=== PATIENT | female | born 1980 | race African-American/Black ===

== ENCOUNTER 2016-09-28 21:12 | Emergency (ER) | payer MEDICAID ==
[~2016-09-28] VITALS: Ht 157.5 cm; Wt 70.3 kg
[2016-09-28] MEDS ORDERED: NKM (21:23)
--- NOTE | 2016-09-28 21:35 | Emergency Room Report ---
History of Present Illness General Chief Complaint: Pain Source: Patient Present Illness HPI Is a 36-year-old female with no significant past medical history. She presents with chief complaint of multiple left-sided pain status post fall. Onset was around 4:45 PM this afternoon. She was crossing the street and turned jump over a small ledge. She tripped on it and fell on her left side. She complaining of pain mostly on her left shoulder, neck, left forearm, left side, and left leg. No loss of consciousness. Still able to work. No fever or chills. Pain is worse with movement. Also with pain going down from her neck or arm. Denies any other complaint. Pain is 9/10. Allergies: Coded Allergies: No Known Allergies (Unverified , 09/28/16) Patient History Past Medical History: see triage record, old chart reviewed Past Surgical History: none Pertinent Family History: none Social History: Denies: smoking Last Menstrual Period: 07/30/16 Now: No : 4 Para: 0 Immunizations: other Reviewed Nursing Documentation: PMH: Agreed, PSxH: Agreed Nursing Documentation-PMH Past Medical History: No Stated History Review of Systems Eye: Denies: blurred vision, eye pain ENT: Denies: ear pain, nose congestion, throat swelling Respiratory: Denies: cough, shortness of breath Cardiovascular: Denies: chest pain, palpitations Gastrointestinal: Denies: abdominal pain, diarrhea, nausea, vomiting Musculoskeletal: Reports: joint pain, muscle pain, muscle stiffness, Denies: back pain Skin: Denies: rash Neurological: Denies: headache, numbness Endocrine: Denies: increased thirst, increased urine Hematologic/Lymphatic: Denies: easy bruising All Other Systems: negative except mentioned in HPI Physical Exam Vital Signs Date Time Temp Pulse Resp B/P Pulse Ox O2 Delivery O2 Flow Rate FiO2 09/28/16 21:19 98.4 85 16 143/101 99 Room Air vitals with hypertension Sp02 EP Interpretation: reviewed, normal General Appearance: well appearing, no apparent distress, alert Head: normocephalic, atraumatic Eyes: bilateral eye EOMI, bilateral eye PERRL ENT: hearing grossly normal, normal pharynx Neck: full range of motion, supple, no meningismus, tender - Tenderness along the Left paraspinous muscle. Respiratory: chest non-tender, lungs clear, normal breath sounds Cardiovascular #1: regular rate, rhythm, no murmur Gastrointestinal: normal bowel sounds, non tender, no mass, no organomegaly, no bruit, non-distended Musculoskeletal: back normal, gait/station normal, normal range of motion, other - Left shoulder: Diffuse tenderness. Full range of motion. Sensation normal. Psychiatric: mood/affect normal Skin: warm/dry Medical Decision Making Diagnostic Impression: Primary Impression: Cervical strain, acute Qualified Codes: S16.1XXA - Strain of muscle, fascia and tendon at neck level , initial encounter Additional Impressions: Contusion of left shoulder, initial encounter Contusion of left thigh, initial encounter Contusion of left lower leg, initial encounter ER Course Patient with soft tissue injury. No fracture or dislocation. We'll discharge home with reassurance. Other X-Ray Diagnostic Results Other X-Ray Diagnostic Results : X-Ray ordered: C-spine x-rays # of Views/Limited Vs Complete: 3 View EP Interpretation: Yes Interpretation: no fractures, no dislocation, no soft tissue swelling Indication: Pain Impression: No acute disease Interpreting ER Provider: Electronically signed by Cody Hill MD Last Vital Signs Date Time Temp Pulse Resp B/P Pulse Ox O2 Delivery O2 Flow Rate FiO2 09/28/16 21:19 98.4 85 16 143/101 99 Room Air Status: improved Disposition: HOME, SELF-CARE Condition: Stable Scripts Ibuprofen* (MOTRIN*) 600 Mg Tablet 600 MG ORAL THREE TIMES A DAY, #30 TAB 0 Refills Prov: CODY HILL M.D. 09/28/16 Hydrocodone/Acetaminophen 5-325* (HYDROCODONE/ACETAMINOPHEN 5-325*) 1 Each Tablet 1 TAB ORAL Q6H Y for For Pain, #20 TAB 0 Refills Prov: CODY HILL M.D. 09/28/16 Additional Instructions: Followup with your DrBryant in 2-5 days. Return if symptom worsen. Ice pack to the area. CODY HILL M.D. Sep 28, 2016 21:35
[2016-09-28] MEDS ORDERED: IBUPROFEN600 MG ORAL (21:40)
[2016-09-28] MEDS ORDERED: HYDROCODON-ACE1 EA15 ORAL (21:40)
[2016-09-28] MEDS ORDERED: Norco 5mg/325mg tab ORAL ONE (21:45)
[2016-09-28 22:00] VITALS: BP 139/88
[2016-09-28 22:30] VITALS: BP 139/88
--- NOTE | 2016-09-29 11:35 | Diagnostic Imaging Report ---
Indication: Pain Comparison: None Findings: Two views of the left tibia and fibula were obtained. No acute fracture, malalignment, or periosteal reaction are identified. Soft tissues are unremarkable. Impression: Negative examination of the tibia and fibula
--- NOTE | 2016-09-29 11:35 | Diagnostic Imaging Report ---
Indication: Neck Pain Findings: 3 views of the cervical spine were obtained. There is narrowing of the C3-4 disc with marginal spur formation. There is no malalignment or fracture identified. Open-mouth view is negative. No soft tissue swelling is present. Impression: Degenerative disease at C3-4
--- NOTE | 2016-09-29 11:35 | Diagnostic Imaging Report ---
Indication: Pain Findings: 3 views of the left shoulder were obtained. Alignment of the left shoulder is normal. No acute fracture is identified. Soft tissues are unremarkable. Impression: Negative left shoulder examination
== END 2016-09-28 22:30 | disposition home or self-care (01) ==
LOC: EMR 21:42
DX: S16.1XXA Strain of muscle, fascia and tendon at neck level, initial encounter (principal); S40.012A Contusion of left shoulder, initial encounter; S70.12XA Contusion of left thigh, initial encounter; S80.12XA Contusion of left lower leg, initial encounter; W01.0XXA Fall on same level from slipping, tripping and stumbling without subsequent striking against object, initial encounter; Y92.410 Unspecified street and highway as the place of occurrence of the external cause
CPT/HCPCS: 72040; 99284

== ENCOUNTER 2017-01-05 20:53 | Emergency (ER) | payer MEDICAID ==
[~2017-01-05] VITALS: Ht 157.5 cm; Wt 68.0 kg
[~2017-01-05 20:53] MED LIST: HYDROCODON-ACE1 EA15 ORAL; IBUPROFEN600 MG ORAL; NKM
[2017-01-05 21:00] VITALS: BP 127/86
--- NOTE | 2017-01-05 21:18 | Emergency Room Report ---
History of Present Illness General Chief Complaint: Abdominal Pain Source: Patient Present Illness HPI 36-year-old female , (one miscarriage and 2 ectopic pregnancies), presents with abdominal pain and missed menstrual period. Patient states that she normally gets her period every month on the first, has been late for 6 days. Patient states she took a test which was positive. Also complaining of generalized abdominal pain left worse than right , 4/10, constant, crampy. Denies any fever chills, nausea vomiting, vaginal bleeding, vaginal discharge. No dysuria or hematuria. Patient states that she has had 2 ectopic pregnancies, both requiring surgical repair, states that her right tube was removed, and her left tube was tied Allergies: Coded Allergies: No Known Allergies (Unverified , 09/28/16) Patient History Past Medical History: see triage record Past Surgical History: none Pertinent Family History: none Last Menstrual Period: Nov Reviewed Nursing Documentation: PMH: Agreed, PSxH: Agreed Review of Systems All Other Systems: negative except mentioned in HPI Physical Exam Vital Signs Date Time Temp Pulse Resp B/P (MAP) Pulse Ox O2 Delivery O2 Flow Rate FiO2 01/05/17 20:56 98.6 76 18 127/86 98 Room Air Sp02 EP Interpretation: reviewed, normal General Appearance: normal inspection, well appearing, no apparent distress, alert, GCS 15, non-toxic, other - Well appearing female, nontoxic, not in pain, calm and cooperative Head: normocephalic, atraumatic Eyes: bilateral eye normal inspection, bilateral eye PERRL, bilateral eye EOMI ENT: normal ENT inspection, normal pharynx, normal voice, moist mucus membranes Neck: normal inspection, full range of motion, supple Respiratory: normal inspection, lungs clear, normal breath sounds, no respiratory distress, no retraction, no wheezing, speaking full sentences, chest symmetrical Cardiovascular #1: normal inspection, regular rate, rhythm, no edema, normal capillary refill Cardiovascular #2: 2+ radial (R), 2+ radial (L) Gastrointestinal: normal inspection, non tender, soft, non-distended, no guarding, other - Nontender all quadrants Genitourinary: no CVA tenderness Musculoskeletal: normal inspection, back normal, normal range of motion, non- tender Neurologic: normal inspection, alert, oriented x3, responsive, motor strength/ tone normal, sensory intact, normal gait, speech normal Psychiatric: normal inspection, judgement/insight normal, memory normal Skin: normal inspection, normal color, no rash, warm/dry, well hydrated, normal turgor Medical Decision Making Diagnostic Impression: Primary Impression: Abdominal pain Additional Impression: Positive blood test ER Course 28-year-old female, with missed menstrual cycle, and abdominal pain DDX: , ectopic, menstrual cycle pain Other intra-abdominal pathology such as appendicitis unlikely, abdomen is very soft and nontender time Plan: cbc, bmp, bhcg, type and screen, ua, ucx Pt remains stable/nontoxic appearing in ED. ER course patient has remained stable in ED no pain no vaginal bleeding US no IUP beta slightly elevated at 972 Disposition: Patient will be discharged to home. Patient was informed that at this time, ectopic is not excluded. Patient still may have ectopic versus normal Strict return precautions to discussed with patient such as high fever, chills, abdominal pain, intractable nausea or vomiting, worsening/heavy bleeding, lightheadedness or syncope. Patient verbalized understanding. Patient instructed to follow up with her OBGYN within 48 hours without fail for repeat bhcg and sonogram. Patient agrees with plan. Please note that this Emergency Department Report was dictated using [employer] coil assembler technology software, occasionally this can lead to erroneous entry secondary to interpretation by the dictation equipment. CT/MRI/US Diagnostic Results CT/MRI/US Diagnostic Results : Imaging Test Ordered: US pelvic transvaginal sono Impression no IUP, thickened endometrium, no free fluid Electronically signed by Shanique Real MD Last Vital Signs Date Time Temp Pulse Resp B/P (MAP) Pulse Ox O2 Delivery O2 Flow Rate FiO2 01/05/17 20:56 98.6 76 18 127/86 98 Room Air Disposition: HOME, SELF-CARE Condition: Improved Shanique Real M.D. Jan 05, 2017 21:18
[2017-01-05 21:39] LABS: APPEARANCE,URINE CLEAR; KETONES,URINE 4+ (NEGATIVE); LEUKOCYTE ESTERASE ,URINE 1+ (NEGATIVE); NITRITE,URINE NEGATIVE (NEGATIVE); PH,URINE 5 (4.5-8.0); PROTEIN,URINE NEGATIVE (NEGATIVE); UROBILINOGEN,URINE NORMAL MG/DL (0.0-1.0)
[2017-01-05 21:41] LABS: BASOPHILS % (AUTO) 1.4 % (0.0-2.0); EOSINOPHILS % (AUTO) 0.7 % (0.0-3.0); LYMPHOCYTES % (AUTO) 30.9 % (20.0-45.0); MEAN CORPUSCULAR HEMOGLOBIN 29.1 PG (27.0-31.0); MEAN CORPUSCULAR HGB CONC 31.7 G/DL (32.0-36.0); MEAN CORPUSCULAR VOLUME 92 FL (80-99); MEAN PLATELET VOLUME 5.7 FL (6.5-10.1); MONOCYTES % (AUTO) 6.3 % (1.0-10.0); NEUTROPHILS % (AUTO) 60.7 % (45.0-75.0); PLATELET COUNT 274 K/UL (150-450); RED BLOOD COUNT 4.46 M/UL (4.20-5.40); RED CELL DISTRIBUTION WIDTH 11.2 % (11.6-14.8); WHITE BLOOD COUNT 6.1 K/UL (4.8-10.8)
[2017-01-05 21:48] LABS: BACTERIA,URINE FEW /HPF; MUCUS,URINE FEW /LPF (NONE/OCC); RBC,URINE 0-2 /HPF (0 - 2); SQUAMOUS EPITHELIAL CELL,UR FEW /LPF (NONE/OCC); WBC,URINE 0-2 /HPF (0 - 2)
[2017-01-05 21:59] LABS: ALANINE AMINOTRANSFERASE 12 U/L (3-33); ALBUMIN/GLOBULIN RATIO 0.8 (1.0-2.7); ANION GAP 16 (5-15); ASPARTATE AMINO TRANSFERASE 18 U/L (5-40); CALCIUM 9.3 mg/dL (8.6-10.2); CARBON DIOXIDE 23 mEQ/L (20-30); CHLORIDE 99 mEQ/L (98-107); CREATININE 0.7 mg/dL (0.5-0.9); GLOMERULAR FILTRATION RATE > 60 mL/min (>60); HEMOLYSIS 1; LIPASE 29 U/L (< 60); POTASSIUM 3.6 mEQ/L (3.4-4.9); SODIUM 138 mEQ/L (135-145); TOTAL PROTEIN 9.7 g/dL (6.6-8.7)
[2017-01-05 23:54] VITALS: BP_SYST 105; BP_SYST 85; BP_DIAS 85
[2017-01-05 23:58] VITALS: BP 105/85
--- NOTE | 2017-01-06 09:04 | Diagnostic Imaging Report ---
Indication: Pelvic pain with positive test. Technique: Transabdominal and endovaginal pelvic ultrasound. Comparison: None Findings: Uterus measures 7.3 x 4.2 cm. The endometrial echo complex measures 1.3 cm. No intrauterine is identified. Left ovary measures 3.2 x 2.0 cm with follicular changes. Right ovary measures 3.2 x 2.3 cm with a 2.2 cm hypoechoic lesion. There is no free pelvic fluid. Impression: No intrauterine identified. Differential considerations include a spontaneous , early intrauterine below threshold level for sonographic visualization or non state. In the absence of a documented intrauterine , ectopic cannot be excluded. Clinical/laboratory correlation recommended. Followup imaging can be performed as clinically appropriate. Approximately 2.2 cm hypoechoic probable hemorrhagic or corpus lesion cyst of the right ovary. Short-term followup recommended for further evaluation.
[2017-01-06] MEDS ORDERED: NORCO 5-325 TA1 EACH ORAL (12:43)
== END 2017-01-05 23:58 | disposition home or self-care (01) ==
LOC: EMR 21:10
DX: R10.9 Unspecified abdominal pain (principal); Z32.01 Encounter for pregnancy test, result positive
CPT/HCPCS: 36415; 76830; 76856; 80053; 81003; 81025; 83690; 84702; 85025; 86850; 86900; 86901; 99284

== ENCOUNTER 2017-01-06 09:52 | Emergency (ER) | payer MEDICAID ==
[~2017-01-06] VITALS: Ht 157.5 cm; Wt 68.0 kg
[2017-01-06 11:02] LABS: BASOPHILS % (AUTO) 1.6 % (0.0-2.0); LYMPHOCYTES % (AUTO) 31.8 % (20.0-45.0); MEAN CORPUSCULAR HEMOGLOBIN 29.7 PG (27.0-31.0); MEAN CORPUSCULAR HGB CONC 32.8 G/DL (32.0-36.0); MEAN CORPUSCULAR VOLUME 91 FL (80-99); MEAN PLATELET VOLUME 6.3 FL (6.5-10.1); MONOCYTES % (AUTO) 10.9 % (1.0-10.0); NEUTROPHILS % (AUTO) 54.6 % (45.0-75.0); PLATELET COUNT 288 K/UL (150-450); RED CELL DISTRIBUTION WIDTH 11.3 % (11.6-14.8); WHITE BLOOD COUNT 4.3 K/UL (4.8-10.8)
[2017-01-06 11:05] LABS: ALANINE AMINOTRANSFERASE 10 U/L (3-33); ALBUMIN/GLOBULIN RATIO 1.2 (1.0-2.7); ANION GAP 13 (5-15); ASPARTATE AMINO TRANSFERASE 18 U/L (5-40); CARBON DIOXIDE 23 mEQ/L (20-30); CHLORIDE 101 mEQ/L (98-107); CREATININE 0.7 mg/dL (0.5-0.9); GLOMERULAR FILTRATION RATE > 60 mL/min (>60); HEMOLYSIS 3; POTASSIUM 4.2 mEQ/L (3.4-4.9); SODIUM 137 mEQ/L (135-145); TOTAL PROTEIN 7.1 g/dL (6.6-8.7)
[2017-01-06 11:21] LABS: CALCIUM 9.1 mg/dL (8.6-10.2)
[2017-01-06] MEDS ORDERED: NORCO 5-325 TA1 EACH ORAL (12:43)
--- NOTE | 2017-01-06 12:43 | Emergency Room Report ---
History of Present Illness General Chief Complaint: Complications Source: Patient Present Illness HPI Patient is a 36-year-old female who presented after increased lower abdominal pain. Patient had recently been seen for related pain. Patient prior history of ectopic . She reports having a previous surgery to her tubes. Patient not been vomiting. She reported having moderate pain. The pain is predominantly in the left side. Allergies: Coded Allergies: No Known Allergies (Unverified , 09/28/16) Patient History Past Medical History: see triage record Reviewed Nursing Documentation: PMH: Agreed, PSxH: Agreed Review of Systems All Other Systems: negative except mentioned in HPI Physical Exam Vital Signs Date Time Temp Pulse Resp B/P (MAP) Pulse Ox O2 Delivery O2 Flow Rate FiO2 01/06/17 09:54 98.2 80 20 142/93 99 Room Air Sp02 EP Interpretation: reviewed, normal General Appearance: normal inspection, well appearing, no apparent distress, alert, GCS 15 Head: atraumatic ENT: normal ENT inspection, hearing grossly normal, normal voice Neck: normal inspection, full range of motion, supple, no bony tend Respiratory: normal inspection, lungs clear, normal breath sounds, no respiratory distress, no retraction, no wheezing Cardiovascular #1: regular rate, rhythm, no edema Gastrointestinal: normal inspection, normal bowel sounds, non tender, soft, no guarding, no hernia Genitourinary: no CVA tenderness Musculoskeletal: normal inspection, back normal, normal range of motion Neurologic: normal inspection, alert, oriented x3, responsive, underground repairer III-XII nml as tested, speech normal Psychiatric: normal inspection, judgement/insight normal, mood/affect normal Skin: normal inspection, normal color, no rash Medical Decision Making Diagnostic Impression: Primary Impression: Early stage of ER Course Patient is a for abdominal pain. differential diagnosis included was not limited to early , incomplete , ectopic , a completed , threatened among others.Because of complexity of patient's case laboratory testing and imaging studies were ordered. The patient was noted to have a rising Quant when compared Previous which was less than 24 hours ago. The patient was noted to have no evidence of free fluid on bedside ultrasound. The patient was offered in-hospital observation and she declined . The patient is advised to return if she began having increased pain, dizziness or other concerns. She is advised that she would need repeat quantitative hCG in 2 days. Labs Test 01/06/17 10:32 White Blood Count 4.3 K/UL (4.8-10.8) Red Blood Count 4.70 M/UL (4.20-5.40) Hemoglobin 14.0 G/DL (12.0-16.0) Hematocrit 42.6 % (37.0-47.0) Mean Corpuscular Volume 91 FL (80-99) Mean Corpuscular Hemoglobin 29.7 PG (27.0-31.0) Mean Corpuscular Hemoglobin Concent 32.8 G/DL (32.0-36.0) Red Cell Distribution Width 11.3 % (11.6-14.8) Platelet Count 288 K/UL (150-450) Mean Platelet Volume 6.3 FL (6.5-10.1) Neutrophils (%) (Auto) 54.6 % (45.0-75.0) Lymphocytes (%) (Auto) 31.8 % (20.0-45.0) Monocytes (%) (Auto) 10.9 % (1.0-10.0) Eosinophils (%) (Auto) 1.0 % (0.0-3.0) Basophils (%) (Auto) 1.6 % (0.0-2.0) Sodium Level 137 mEQ/L (135-145) Potassium Level 4.2 mEQ/L (3.4-4.9) Chloride Level 101 mEQ/L (98-107) Carbon Dioxide Level 23 mEQ/L (20-30) Anion Gap 13 (5-15) Blood Urea Nitrogen 13 mg/dL (7-23) Creatinine 0.7 mg/dL (0.5-0.9) Estimat Glomerular Filtration Rate > 60 mL/min (>60) Glucose Level 100 mg/dL (74-106) Calcium Level 9.1 mg/dL (8.6-10.2) Total Bilirubin 0.4 mg/dL (0.0-1.2) Aspartate Amino Transf (AST/SGOT) 18 U/L (5-40) Alanine Aminotransferase (ALT/SGPT) 10 U/L (3-33) Alkaline Phosphatase 52 U/L (35-104) Total Protein 7.1 g/dL (6.6-8.7) Albumin 4.0 g/dL (3.5-5.2) Globulin 3.1 g/dL Albumin/Globulin Ratio 1.2 (1.0-2.7) Human Chorionic Gonadotropin, Quant 999 mIU/mL Last Vital Signs Date Time Temp Pulse Resp B/P (MAP) Pulse Ox O2 Delivery O2 Flow Rate FiO2 01/06/17 09:54 98.2 80 20 142/93 99 Room Air Status: improved Disposition: HOME, SELF-CARE Condition: Stable Scripts Hydrocodone Bit/Acetaminophen 5-325* (NORCO 5-325*) 1 Each Tablet 1 TAB ORAL Q6H Y for For Pain, #20 TAB 0 Refills Prov: Andres Blackburn 01/06/17 Patient Instructions: Abdominal Pain During Andres Blackburn Jan 06, 2017 12:43
[2017-01-06 12:46] VITALS: BP 137/87
== END 2017-01-06 12:49 | disposition home or self-care (01) ==
LOC: EMR 10:07
DX: O26.899 Other specified pregnancy related conditions, unspecified trimester (principal); R10.30 Lower abdominal pain, unspecified
CPT/HCPCS: 36415; 80053; 84702; 85025; 86900; 86901; 99283

== ENCOUNTER 2017-01-10 15:20 | Emergency (ER) | payer MEDICAID ==
[~2017-01-10] VITALS: Ht 157.5 cm; Wt 68.0 kg
[~2017-01-10 15:20] MED LIST changes: +NORCO 5-325 TA1 EACH ORAL
[2017-01-10 16:48] LABS: APPEARANCE,URINE CLEAR; KETONES,URINE 1+ (NEGATIVE); LEUKOCYTE ESTERASE ,URINE 1+ (NEGATIVE); NITRITE,URINE NEGATIVE (NEGATIVE); PH,URINE 6 (4.5-8.0); PROTEIN,URINE 1+ (NEGATIVE); UROBILINOGEN,URINE 1 MG/DL (0.0-1.0)
[2017-01-10 16:51] LABS: BASOPHILS % (AUTO) 2.7 % (0.0-2.0); LYMPHOCYTES % (AUTO) 37.4 % (20.0-45.0); MEAN CORPUSCULAR HEMOGLOBIN 28.8 PG (27.0-31.0); MEAN CORPUSCULAR HGB CONC 31.2 G/DL (32.0-36.0); MEAN CORPUSCULAR VOLUME 92 FL (80-99); MEAN PLATELET VOLUME 5.8 FL (6.5-10.1); MONOCYTES % (AUTO) 12.6 % (1.0-10.0); NEUTROPHILS % (AUTO) 46.3 % (45.0-75.0); PLATELET COUNT 274 K/UL (150-450); RED BLOOD COUNT 4.73 M/UL (4.20-5.40); RED CELL DISTRIBUTION WIDTH 11.2 % (11.6-14.8); WHITE BLOOD COUNT 4.2 K/UL (4.8-10.8)
[2017-01-10 16:55] LABS: BACTERIA,URINE FEW /HPF; SQUAMOUS EPITHELIAL CELL,UR FEW /LPF (NONE/OCC); WBC,URINE 0-2 /HPF (0 - 2)
--- NOTE | 2017-01-10 17:27 | Emergency Room Report ---
History of Present Illness General Chief Complaint: Complications Source: Patient Present Illness HPI 36 -year-old female presents to the emergency department complaining of left adnexal pain x2 days with spotting. Patient reports she is approximately 4 weeks she has not had IUP established she has a history of ectopic pregnancies bilaterally with excision of the right fallopian tube. Pt. rates pain currently at 2/10 in severity however reports that it was 7/10 in severity with radiation to the left leg prior to arrival and taking oral [place] PO. Patient denies nausea or vomiting, fevers or chills. Patient states that she has been evaluated here in the emergency department with low hCG level and on followup with her DEBUG TECHNICIAN was told that her level continues to drop. Allergies: Coded Allergies: No Known Allergies (Unverified , 09/28/16) Patient History Last Menstrual Period: 11/30/2016 : 4 Para: 0 Nursing Documentation-[facility] Past Medical History: No Stated History Review of Systems All Other Systems: negative except mentioned in HPI Physical Exam Vital Signs Date Time Temp Pulse Resp B/P (MAP) Pulse Ox O2 Delivery O2 Flow Rate FiO2 01/10/17 15:26 98.2 72 14 124/83 99 Room Air Sp02 EP Interpretation: reviewed, normal General Appearance: no apparent distress, alert, GCS 15, non-toxic Head: normocephalic, atraumatic Eyes: bilateral eye normal inspection, bilateral eye PERRL ENT: hearing grossly normal, normal voice Neck: full range of motion, supple/symm/no masses Respiratory: lungs clear, normal breath sounds, speaking full sentences Cardiovascular #1: regular rate, rhythm Gastrointestinal: normal bowel sounds, non tender, soft, no guarding, no rebound Rectal: deferred Genitourinary: normal inspection, no CVA tenderness, os closed, other - Left adnexal TTP, scant dark red blood in the vaginal vault, os is closed Musculoskeletal: back normal, gait/station normal, normal range of motion, non- tender Neurologic: alert, oriented x3, responsive, motor strength/tone normal, sensory intact, speech normal Skin: normal color, no rash, warm/dry, well hydrated Lymphatic: no adenopathy Medical Decision Making PA Attestation Dr. Jeffers is my supervising Physician whom patient management has been discussed with. Diagnostic Impression: Primary Impression: Adnexal mass Additional Impression: Adnexal pain ER Course 36 -year-old female presents to the emergency department complaining of left adnexal pain x2 days with spotting. Patient reports she is approximately 4 weeks she has not had IUP established she has a history of ectopic pregnancies bilaterally. Patient denies nausea or vomiting, fevers or chills. Patient states that she has been evaluated here in the emergency department with low hCG level and on followup with her DEBUG TECHNICIAN was told that her level continues to drop. Ddx considered but are not limited to: Fibroid, ectopic , Fibroid, Spontaneous , Vital signs: are WNL, pt. is afebrile H&PE are most consistent with: possible ectopic or miscarriage. - review of previous blood type taken 4 days ago is : A positive ORDERS: -CBC: no leukocytosis, no anemia -CMP: unremarkable -UA: no evidence of infection, blood noted , consistent with spotting. -Urine hcg- Positive -serum Hcg Quant: 51 ( previously was 999 on 01/06 ) -Pelvic US complete- mass in the left adnexal area suspicious for ectopic per Radiologist: Dr. Tian. ED INTERVENTIONS: -NPO - OBGYN CONSULT: Dr. Arnold : Dr. Olivia michael does not suspect ectopic at this time as he notes that the hCG has dropped significantly to 51 which is almost 0, he believes this is spontaneous miscarriage as no IUP or HR/ viability was previously established. to see her once a radiologist to compare both today and previous ultrasound taken 4 days ago. He states that as long as patient is hemodynamically stable, and has ability for outpatient followup tomorrow with her DEBUG TECHNICIAN he is comfortable with her being discharged and having repeat hCG in 24 hours. - [place] PO DISCHARGE: At this time pt. is stable for d/c to home with close outpatient follow up. Patient is to have DEBUG TECHNICIAN followup in 24 hours for repeat hCG. Gave patient strict emergency Department return precautions with worsening or new symptoms. Patient verbalizes her understanding and agreement with post treatment plan. . Will provide printed patient care instructions, and any necessary prescriptions. Care plan and follow up instructions have been discussed with the patient prior to discharge. Labs Test 01/10/17 16:28 White Blood Count 4.2 K/UL (4.8-10.8) Red Blood Count 4.73 M/UL (4.20-5.40) Hemoglobin 13.6 G/DL (12.0-16.0) Hematocrit 43.7 % (37.0-47.0) Mean Corpuscular Volume 92 FL (80-99) Mean Corpuscular Hemoglobin 28.8 PG (27.0-31.0) Mean Corpuscular Hemoglobin Concent 31.2 G/DL (32.0-36.0) Red Cell Distribution Width 11.2 % (11.6-14.8) Platelet Count 274 K/UL (150-450) Mean Platelet Volume 5.8 FL (6.5-10.1) Neutrophils (%) (Auto) 46.3 % (45.0-75.0) Lymphocytes (%) (Auto) 37.4 % (20.0-45.0) Monocytes (%) (Auto) 12.6 % (1.0-10.0) Eosinophils (%) (Auto) 1.0 % (0.0-3.0) Basophils (%) (Auto) 2.7 % (0.0-2.0) Urine Color Yellow Urine Appearance Clear Urine pH 6 (4.5-8.0) Urine Specific [place] 1.025 (1.005-1.035) Urine Protein 1+ (NEGATIVE) Urine Glucose (UA) Negative (NEGATIVE) Urine Ketones 1+ (NEGATIVE) Urine Occult Blood 5+ (NEGATIVE) Urine Nitrite Negative (NEGATIVE) Urine Bilirubin Negative (NEGATIVE) Urine Urobilinogen 1 MG/DL (0.0-1.0) Urine Leukocyte Esterase 1+ (NEGATIVE) Urine RBC 2-4 /HPF (0 - 2) Urine WBC 0-2 /HPF (0 - 2) Urine Squamous Epithelial Cells Few /LPF (NONE/OCC) Urine Bacteria Few /HPF (NONE) Urine HCG, Qualitative Positive Sodium Level 136 MMOL/L (136-145) Potassium Level 4.4 MMOL/L (3.5-5.1) Chloride Level 104 MMOL/L (98-107) Carbon Dioxide Level 27 MMOL/L (21-32) Anion Gap 5 (5-15) Blood Urea Nitrogen 18 mg/dL (7-18) Creatinine 0.8 MG/DL (0.55-1.30) Estimat Glomerular Filtration Rate > 60 mL/min (>60) Glucose Level 92 MG/DL (74-106) Calcium Level 9.6 MG/DL (8.5-10.1) Human Chorionic Gonadotropin, Quant 51 mIU/mL (1-6) Last Vital Signs Date Time Temp Pulse Resp B/P (MAP) Pulse Ox O2 Delivery O2 Flow Rate FiO2 01/10/17 15:26 98.2 72 14 124/83 99 Room Air Disposition: HOME, SELF-CARE Condition: Stable Physician Consult: Dr. Clayton VILLARREAL Scripts Hydrocodone Bit/Acetaminophen 7.5-325* (NORCO 7.5-325*) 1 Each Tablet 1 TAB ORAL Q6H Y for For Pain, #6 TAB 0 Refills Prov: Anila Kwan 01/10/17 Referrals: NON PHYSICIAN (PCP) Patient Instructions: Miscarriage, [id number], Ovarian Cyst, [id number] Additional Instructions: Take medications as directed. Follow up with a Primary Care Provider/ OBGYN in 24 hours for REPEAT Hcg even if your symptoms have resolved. Return sooner to ED if new symptoms occur, or current symptoms become worse. - Please note that this Emergency Department Report was dictated using [employer] d[employer] technology software, occasionally this can lead to erroneous entry secondary to interpretation by the dictation equipment. Anila Kwan Jan 10, 2017 17:27
[2017-01-10 17:47] LABS: ANION GAP 5 (5-15); CALCIUM 9.6 MG/DL (8.5-10.1); CARBON DIOXIDE 27 MMOL/L (21-32); CHLORIDE 104 MMOL/L (98-107); CREATININE 0.8 MG/DL (0.55-1.30); GLOMERULAR FILTRATION RATE > 60 mL/min (>60); POTASSIUM 4.4 MMOL/L (3.5-5.1); SODIUM 136 MMOL/L (136-145)
[2017-01-10] MEDS ORDERED: Norco 7.5mg/325mg tab ORAL ONE (19:00)
--- NOTE | 2017-01-10 19:10 | Emergency Room Report ---
Physical Exam Vital Signs Date Time Temp Pulse Resp B/P (MAP) Pulse Ox O2 Delivery O2 Flow Rate FiO2 01/10/17 15:26 98.2 72 14 124/83 99 Room Air Medical Decision Making Diagnostic Impression: Primary Impression: Adnexal mass ER Course On Dr Seymour's request, I spoke to Dr Teixeira regarding todays sono and comparison to previous sono Sono shows 12mm adnexal mass on left ? if in or outside of ovary Trace pelvic fluid, no hemoperitoneum No FP, no FHR, no IUP Beta HCG is 50, down from ~1000 1 week ago I spoke to Dr Arnold - he doubts ectopic Possibly recently aborted spontaneously or resolved ectopic on its own Dr Arnold doubts ectopic Recommends followup tomorrow with PMD to recheck beta hcg The above was communicated to MARIA DE JESUS Kwan Last Vital Signs Date Time Temp Pulse Resp B/P (MAP) Pulse Ox O2 Delivery O2 Flow Rate FiO2 01/10/17 15:26 98.2 72 14 124/83 99 Room Air Status: improved Disposition: HOME, SELF-CARE Referrals: NON PHYSICIAN (PCP) JC FERREIRA M.D. Jan 10, 2017 19:10
[2017-01-10] MEDS ORDERED: NORCO 7.5-3251 EACH ORAL (19:30)
[2017-01-10 20:01] VITALS: BP 128/88
--- NOTE | 2017-01-14 09:34 | Diagnostic Imaging Report ---
Indication: Pelvic pain, vaginal bleeding, positive test Technique: Transabdominal and transvaginal images Comparison: 01/05/2017 Findings: Uterus is retroverted, measures 7.4 cm length by 4 point centimeters AP. Endometrium is somewhat thickened, measuring 14 mm thick. It is homogeneous. No intrauterine gestational sac demonstrated. Small myometrial fibroids are demonstrated, measuring up to 1.8 cm long axis dimension. Right ovary measures 3.8 cm in length. Left ovary measures 3.4 cm in length. Adjacent to the left ovary, small hyperechoic structure measures 10 mm in diameter, contains a central hypoechoic area which measures 5 mm in diameter. There is a small amount of fluid adjacent to it. This is not evident on the previous exam.. Impression: No intrauterine demonstrated Questionable small hyperechoic area with central lucency adjacent to the left ovary, could represent an ectopic gestational sac. Correlate with clinical findings and serial beta-hCGs Thickened endometrium Uterine fibroids Findings discussed by phone with Anila nurse practitioner, in the emergency room at the time the exam was performed
== END 2017-01-10 20:01 | disposition home or self-care (01) ==
LOC: EMR 16:45
DX: O26.851 Spotting complicating pregnancy, first trimester (principal); O26.92 Pregnancy related conditions, unspecified, second trimester; R10.2 Pelvic and perineal pain
CPT/HCPCS: 36415; 76801; 80048; 81003; 81025; 84702; 85025; 99283